=== PATIENT | male | born 1955 | race Caucasian/White ===

== ENCOUNTER 2018-10-30 14:19 | Emergency (ER) | payer OTHER ==
[~2018-10-30] VITALS: Ht 180.3 cm; Wt 86.4 kg
[2018-10-30 14:20] VITALS: Ht 180.3 cm; Wt 86.4 kg
[2018-10-30] MEDS ORDERED: METOPROLOL TART50 MG PO (14:22)
[2018-10-30] MEDS ORDERED: HYDROCODON-ACE1 EA10 PO (14:23)
[2018-10-30] MEDS ORDERED: AMBIEN10 MG PO (14:23)
[2018-10-30] MEDS ORDERED: ZYRTEC10 MG PO (14:23)
[2018-10-30] MEDS ORDERED: BUPROPION HCL100 MG PO (14:24)
[2018-10-30] MEDS ORDERED: SOMA350 MG PO (14:24)
[2018-10-30] MEDS ORDERED: VOLTAREN75 MG PO (16:43)
[2018-10-30 17:30] VITALS: BP 159/113
== END 2018-10-30 17:38 | disposition home or self-care (01) ==
LOC: D.ER 14:19
DX: S81.012A Laceration without foreign body, left knee, initial encounter (principal); W29.3XXA Contact with powered garden and outdoor hand tools and machinery, initial encounter; Y93.89 Activity, other specified; Y92.89 Other specified places as the place of occurrence of the external cause